=== PATIENT | male | born 1980 | race American Indian/Alaskan Native ===

== ENCOUNTER 2019-03-17 08:45 | Day surgery (SDC) | payer MEDICAID ==
[2019-03-17] MEDS ORDERED: NACL 0.9% 1000 ML 1,000 ML IV SCH (10:00)
--- NOTE | 2019-03-17 10:05 | Anesthesia Day of Surgery ---
Anesthesia Day of Surgery - Day of Surgery Patient Examined: Yes Patient H&P Reviewed: Yes Patient is NPO: Yes Beta Blockers: No
--- NOTE | 2019-03-17 10:06 | Anesthesia Consultation ---
Anesthesia Consult and Med Hx Date of service: 03/17/19 - Airway Anesthetic Teeth Evaluation: Good ROM Head & Neck: Adequate Mental/Hyoid Distance: Adequate Mallampati Class: Class III Intubation Access Assessment: Possibly Difficult - Pulmonary Exam CTA: Yes - Cardiac Exam Cardiac Exam: No Murmur - Pre-Operative Health Status ASA Pre-Surgery Classification: ASA3 Proposed Anesthetic Plan: MAC - Cardiovascular System Hx Hypertension: Yes - Central Nervous System CVA: Yes - Other Systems Hx Obesity: Yes
[2019-03-17] MEDS ORDERED: DIPRIVAN 10 MG/ML IV ONE ×2 (10:45)
[2019-03-17] MEDS ORDERED: XYLOCAINE 2% INFILTRATI ONE (10:45)
[2019-03-17] MEDS ORDERED: VERSED ONE (10:45)
[2019-03-17] MEDS ORDERED: WATER FOR IRRIG STERILE IR ONE (11:07)
--- NOTE | 2019-03-17 11:47 | Operative Report ---
Operative Report Operative Report: Date of procedure: 03/17/2019 Procedure: Colonoscopy with Snare polypectomy and submucosal injection. Attending physician: Phil Davis M.D. Fire Investigator: Phil Davsi M.D. Indication: Patient is a 38-year-old female who presents for colonoscopy to evaluate rectal bleeding and family history of colon cancer. This colonoscopy serves to evaluate patient so that treatment may be directed based on the findings. Consent: Informed consent was obtained after advising the patient and family regarding nature of this procedure, its indications, potential benefits as well as possible complications including but not limited to bleeding perforation and adverse reaction to medication, infection as well as other cardiopulmonary complications. An informed written and verbal consent was then obtained after due opportunity was provided for questions and answers. Monitoring: Patient was monitored continuously with pulse oximetry and electrocardiographic recordings as well as blood pressure recordings. Vital signs remained stable throughout this procedure with no untoward events. Preoperative assessment: Patient was assessed immediately prior to this procedure for capacity to tolerate monitored anesthesia care and moderate sedation as well as general anesthesia. Patient's ASA classification is 2, Mallampati class is 2, Hyomental distance is 3. Instrument: Olympus video colonoscope [id number] Medications: Propofol given intravenously in divided doses. For details please refer to anesthesia records. Description of procedure: Patient was placed in the left lateral decubitus position after achieving sedation, a digital rectal examination was performed following which the colonoscope was introduced into the anal verge and advanced to the cecum which was identified by the cecal valve, the appendiceal orifice, as well as by the cecal strap and direct transillumination. The colonoscope was subsequently withdrawn with careful inspection of all mucosal surfaces. Patient tolerated this procedure well and was subsequently taken to the recovery room. The following findings were noted. Findings: Patient had a broad-based 1.0 cm sessile polyp seen in the proximal ascending colon, there also was a small diminutive flat polyp of 3-4 mm flat polyp next to this. Both polyps were elevated with submucosal injection of saline and removed by snare electrocautery and retrieved. A Hemoclip was placed at the polypectomy defect. Patient had substantial retained stool with thick liq uid densely adherent stool seen in various sections of the colon. Patient was noted to have prominent internal hemorrhoids seen on the retroflexed view at the anal verge. Impression: Proximal ascending colon polyps status post submucosal injection and snare polypectomy. Prominent Internal hemorrhoids. Plan: Follow pathology report. High-fiber diet. Repeat colonoscopy within 6 months to 1 year due to retained stool in sections of the colon. Schedule patient for outpatient CRE hemorrhoid banding
[2019-03-17 12:05] VITALS: BP 165/100
== END 2019-03-17 08:46 | disposition home or self-care (01) ==
LOC: GIO 08:45
PROVIDERS: ATTEND Internal Medicine Gastroenterology
DX: K63.5 Polyp of colon (principal); K64.8 Other hemorrhoids; K62.5 Hemorrhage of anus and rectum; I10 Essential (primary) hypertension; E66.9 Obesity, unspecified; E11.9 Type 2 diabetes mellitus without complications; Z80.0 Family history of malignant neoplasm of digestive organs; Z79.899 Other long term (current) drug therapy; Z68.30 Body mass index [BMI] 30.0-30.9, adult; Z98.890 Other specified postprocedural states; Z79.84 Long term (current) use of oral hypoglycemic drugs; Z86.73 Personal history of transient ischemic attack (TIA), and cerebral infarction without residual deficits; Z88.8 Allergy status to other drugs, medicaments and biological substances
CPT/HCPCS: 45381; 45385; 82962; 88305; J2250; J2704; J7030